=== PATIENT | female | born 1945 | race Caucasian/White ===

== ENCOUNTER 2017-08-10 10:22 | Day surgery (SDC) | payer MEDICARE ==
[~2017-08-10] VITALS: Ht 167.6 cm; Wt 62.6 kg
[~2017-08-10 10:22] MED LIST: ASPI-621 PO; BIOTIN PO; BUPIVACAINE/PF 0.25% ONE; CHOL400C11 PO; CYAN50008 PO; EPINEPHRINE 1 MG/ML, 1ML ONE; FENTANYL PF 100 MCG/2ML ONE; FISH OIL PO; LIDOCAINE 1%, 2ML ONE; MAGNESIUM PO; MIDAZOLAM 1 MG/ML, 2ML ONE; MULT-717 PO; OMEP-110 PO; PREG50CA PO; RED600CA2 PO; UBID100C19 PO; VIT1CAPS11 PO; VITAMIN C PO
[2017-08-10] MEDS ORDERED: LACTATED RINGERS 1,000 ML IV SCH (11:41)
[2017-08-10] MEDS ORDERED: LIDOCAINE 1%, 2ML SQ PRN (12:00)
[2017-08-10] MEDS ORDERED: MIDAZOLAM 1 MG/ML, 2ML ONE (12:24)
[2017-08-10] MEDS ORDERED: FENTANYL PF 100 MCG/2ML ONE ×2 (12:24→14:40)
[2017-08-10] MEDS ORDERED: PROPOFOL 10 MG/ML, 20ML ONE (12:25)
[2017-08-10] MEDS ORDERED: LIDOCAINE-MPF 2% ,5ML ONE (12:25)
[2017-08-10] MEDS ORDERED: ROCURONIUM 10 MG/ML ONE (13:22)
[2017-08-10] MEDS ORDERED: KETAMINE 10 MG/ML, 20ML ONE (13:22)
[2017-08-10] MEDS ORDERED: CEFAZOLIN 1,000 MG ONE ×2 (13:36)
[2017-08-10] MEDS ORDERED: DEXAMETHASONE 4 MG/ML, 1ML ONE ×2 (13:36)
[2017-08-10] MEDS ORDERED: KETOROLAC 30 MG/1 ML ONE (13:46)
[2017-08-10] MEDS ORDERED: ONDANSETRON 2MG/ML, 2ML ONE ×2 (13:46)
[2017-08-10] MEDS ORDERED: HYDROmorphone 1 MG/ML, 1ML ONE (13:59)
[2017-08-10] MEDS ORDERED: hydrALAzine 20 MG/ML, 1ML IV PRN (14:30)
[2017-08-10] MEDS ORDERED: PROMETHAZINE 25 MG/ML, 1ML IV PRN (14:30)
[2017-08-10] MEDS ORDERED: FENTANYL PF 100 MCG/2ML IV PRN (14:30)
[2017-08-10] MEDS ORDERED: ACETAMINOPHEN 325 MG TABLET PO PRN (14:30)
[2017-08-10] MEDS ORDERED: OXYcodone 5 MG/5 ML ORAL.SOL UDC PO PRN (14:30)
[2017-08-10] MEDS ORDERED: ONDANSETRON 2MG/ML, 2ML IVPush PRN (14:30)
[2017-08-10] MEDS ORDERED: LABETALOL 5MG/ML, 20ML IV PRN (14:30)
[2017-08-10] MEDS ORDERED: MEPERIDINE/PF 25MG/0.5ML IVPush PRN (14:30)
[2017-08-10] MEDS ORDERED: ALBUTEROL SULFATE 2.5 MG/3 ML NPPB PRN (14:30)
[2017-08-10] MEDS ORDERED: HYDROmorphone 1 MG/ML, 1ML IV PRN (14:30)
[2017-08-10] MEDS ORDERED: ACETAMINOPHEN 650 MG/20.3 ML UDC ONE (14:40)
[2017-08-10] MEDS ORDERED: OXYcodone 5 MG/5 ML ORAL.SOL UDC ONE (14:40)
== END 2017-08-10 16:50 | disposition home or self-care (01) ==
LOC: OUT 10:22
PROVIDERS: ATTEND Obstetrics & Gynecology Female Pelvic Medicine and Reconstructive Surgery
DX: N81.3 Complete uterovaginal prolapse (principal); K21.9 Gastro-esophageal reflux disease without esophagitis; Z90.710 Acquired absence of both cervix and uterus; Z90.49 Acquired absence of other specified parts of digestive tract; Z98.890 Other specified postprocedural states
CPT/HCPCS: 57260; 57282; J0171; J0690; J1100; J1170; J1885; J2250; J2405; J2704; J3490; J7120; J3010

== ENCOUNTER 2017-09-30 08:35 | Observation (INO) | payer MEDICARE ==
[~2017-09-30] VITALS: Ht 170.2 cm; Wt 62.3 kg
[~2017-09-30 08:35] MED LIST changes: -BUPIVACAINE/PF 0.25% ONE; -EPINEPHRINE 1 MG/ML, 1ML ONE; -FENTANYL PF 100 MCG/2ML ONE; -LIDOCAINE 1%, 2ML ONE; -MIDAZOLAM 1 MG/ML, 2ML ONE
[2017-09-30] MEDS ORDERED: SODIUM CHLORIDE 0.9% 1,000 ML IV SCH (09:14)
[2017-09-30 09:43] VITALS: BP 133/69
[2017-09-30 09:55] LABS: BASOPHILS # (AUTO) 0.04 x10^3/uL (0-0.1); BASOPHILS % (AUTO) 1 % (0-1); EOSINOPHILS # (AUTO) 0.04 x10^3/uL (0-0.4); EOSINOPHILS % (AUTO) 1 % (1-7); LYMPHOCYTES # (AUTO) 2.08 x10^3/uL (1-3.4); LYMPHOCYTES % (AUTO) 33 % (22-44); MD NO; MEAN CORPUSCULAR HEMOGLOBIN 35.4 pg (27.0-34.8); MEAN CORPUSCULAR HGB CONC 33.9 g/dL (32.4-35.8); MEAN CORPUSCULAR VOLUME 104.3 fL (80-100); MEAN PLATELET VOLUME 7.1 fL (7.4-10.4); MONOCYTES # (AUTO) 0.32 x10^3/uL (0.2-0.8); MONOCYTES % (AUTO) 5 % (2-9); NEUTROPHILS # (AUTO) 3.86 x10^3/uL (1.8-6.8); NEUTROPHILS % (AUTO) 61 % (42-75); PLATELET COUNT 301 x10^3/uL (130-400); RED BLOOD COUNT 4.64 x10^6/uL (3.82-5.3); RED CELL DISTRIBUTION WIDTH 14.1 % (9.6-15.2)
[2017-09-30 09:59] LABS: INTERNATIONAL NORMALIZED RATIO 1.03 (0.93-1.1); PROTHROMBIN TIME 10.7 Seconds (9.6-11.5)
[2017-09-30] MEDS ORDERED: FLUMAZENIL 0.1 MG/1 ML, 5ML ONE (09:59)
[2017-09-30] MEDS ORDERED: HEPARIN 1,000 UNITS/ML, 10ML ONE (09:59)
[2017-09-30] MEDS ORDERED: LIDOCAINE 2%, 20ML ONE ×2 (09:59→10:32)
[2017-09-30] MEDS ORDERED: FENTANYL PF 100 MCG/2ML ONE (09:59)
[2017-09-30] MEDS ORDERED: NALOXONE 1 MG/ML, 2ML ONE (09:59)
[2017-09-30] MEDS ORDERED: NITROGLYCERIN 5 MG/ML, 10ML ONE (09:59)
[2017-09-30] MEDS ORDERED: MIDAZOLAM 1 MG/ML, 5ML ONE (09:59)
[2017-09-30] MEDS ORDERED: PROTAMINE SULFATE 10 MG/ML, 25ML ONE (09:59)
[2017-09-30] MEDS ORDERED: VISIPAQUE 270 MG/ML, 150ML BOTTLE ONE ×2 (10:00→13:52)
[2017-09-30 10:06] LABS: ALANINE AMINOTRANSFERASE 21 U/L (12-78); ANION GAP 8 mmol/L (5-15); CALCIUM 9.4 mg/dL (8.5-10.1); CHLORIDE 108 mmol/L (98-107); CREATININE 0.73 mg/dL (0.55-1.02)
[2017-09-30 10:08] LABS: ALKALINE PHOSPHATASE 83 U/L (45-117); BILIRUBIN,TOTAL 0.5 mg/dL (0.2-1.0); TOTAL PROTEIN 8.5 g/dL (6.4-8.2)
[2017-09-30] MEDS ORDERED: CLOPIDOGREL 300 MG TABLET ONE (12:14)
[2017-09-30] MEDS ORDERED: hydrALAzine 20 MG/ML, 1ML ONE (16:53)
[2017-09-30] MEDS ORDERED: hydrALAzine 20 MG/ML, 1ML IV PRN (17:00)
[2017-09-30] MEDS: SODIUM CHLORIDE 0.9% 1,000 ML IV SCH (19:30)
[2017-09-30] MEDS ORDERED: ACETAMINOPHEN 325 MG TABLET PO PRN (19:30)
[2017-09-30] MEDS ORDERED: ONDANSETRON 2MG/ML, 2ML IVPush PRN (19:30)
[2017-09-30 19:47] VITALS: BP 153/69
[2017-09-30] MEDS ORDERED: morphine SULFATE 10 MG/ML, 1ML IVPush PRN (20:00)
[2017-09-30 20:34] VITALS: BP 120/67
[2017-09-30] MEDS ORDERED: ZOLPIDEM 5MG TABLET PO PRN (21:00)
[2017-10-01 00:38] VITALS: BP 116/66
[2017-10-01 04:15] VITALS: BP 150/68
[2017-10-01 04:43] LABS: BASOPHILS # (AUTO) 0.02 x10^3/uL (0-0.1); BASOPHILS % (AUTO) 0 % (0-1); EOSINOPHILS # (AUTO) 0.05 x10^3/uL (0-0.4); EOSINOPHILS % (AUTO) 1 % (1-7); LYMPHOCYTES # (AUTO) 1.49 x10^3/uL (1-3.4); LYMPHOCYTES % (AUTO) 26 % (22-44); MD NO; MEAN CORPUSCULAR HEMOGLOBIN 35.1 pg (27.0-34.8); MEAN CORPUSCULAR HGB CONC 33.7 g/dL (32.4-35.8); MEAN CORPUSCULAR VOLUME 103.9 fL (80-100); MEAN PLATELET VOLUME 7.1 fL (7.4-10.4); MONOCYTES % (AUTO) 7 % (2-9); NEUTROPHILS # (AUTO) 3.77 x10^3/uL (1.8-6.8); NEUTROPHILS % (AUTO) 66 % (42-75); PLATELET COUNT 274 x10^3/uL (130-400); RED BLOOD COUNT 4.11 x10^6/uL (3.82-5.3); RED CELL DISTRIBUTION WIDTH 14.1 % (9.6-15.2)
[2017-10-01 04:50] LABS: ALBUMIN 3.2 g/dL (3.4-5.0); ANION GAP 9 mmol/L (5-15); CALCIUM 8.4 mg/dL (8.5-10.1); CHLORIDE 111 mmol/L (98-107)
[2017-10-01 04:51] LABS: CREATININE 0.58 mg/dL (0.55-1.02)
[2017-10-01] MEDS: SODIUM CHLORIDE 0.9% 1,000 ML IV SCH (05:30)
[2017-10-01] MEDS ORDERED: ASPIRIN 81 MG TABLET EC PO SCH (06:00)
[2017-10-01 06:58] VITALS: BP 170/77
[2017-10-01] MEDS ORDERED: ATORVASTATIN 40 MG TABLET PO SCH (09:00)
[2017-10-01] MEDS ORDERED: CLOPIDOGREL 75 MG TABLET PO SCH (09:00)
== END 2017-10-01 09:00 | disposition home or self-care (01) ==
LOC: OUT 08:35 → INTOOBSV 18:16 → ORIP 18:16 → 4NOR 19:07
PROVIDERS: ADMIT Internal Medicine Interventional Cardiology; ATTEND Internal Medicine Interventional Cardiology
DX: I74.3 Embolism and thrombosis of arteries of the lower extremities (principal); I73.9 Peripheral vascular disease, unspecified; I25.10 Atherosclerotic heart disease of native coronary artery without angina pectoris; Z72.0 Tobacco use; Z72.89 Other problems related to lifestyle
CPT/HCPCS: 36415; 37221; 37225; 75630; 80048; 80053; 82040; 85025; 85347; 85610; 96374; 99156; 99157; C1725; C1751; C1760; C1769; C1876; C1894; C2623; G0378; J0360; J1644; J2250; J2720; J3010; J3490; J7030; Q9966; J2310

== ENCOUNTER → 2018-05-06 | Outpatient (CLI) | payer MEDICARE ==
[~2018-05-06] MED LIST changes: +ACET-1600 PO; +ALPR-475 PO; +ATOR40TA78 PO; +CALC-116 PO; +CLOP75TA PO; +CYAN100072 PO; +LACT1CAP40 PO; +LOPE2CAP94 PO; +MAGN250T9 PO; +VITA10002 PO
[2018-05-06 11:29] LABS: CULTURE INDICATED? YES; MICROSCOPIC INDICATED
== END | disposition home or self-care (01) ==
LOC: STAR 10:07
PROVIDERS: ATTEND Obstetrics & Gynecology Female Pelvic Medicine and Reconstructive Surgery
DX: Z01.818 Encounter for other preprocedural examination (principal); N39.3 Stress incontinence (female) (male); N81.10 Cystocele, unspecified
CPT/HCPCS: 71046; 81001; 87077; 87086; 87186; 93005

== ENCOUNTER 2018-05-10 10:13 | Day surgery (SDC) | payer MEDICARE ==
[~2018-05-10] VITALS: Ht 167.6 cm; Wt 61.6 kg
[~2018-05-10 10:13] MED LIST changes: -ACET-1600 PO; +BACITRACIN 50,000 UNIT ONE; +BUPIVACAINE 0.25% ONE; +EPINEPHRINE 1 MG/ML, 1ML ONE
[2018-05-10 10:51] VITALS: BP 167/78
[2018-05-10] MEDS ORDERED: LACTATED RINGERS 1,000 ML IV SCH (10:53)
[2018-05-10] MEDS ORDERED: ACET-1600 PO (10:57)
[2018-05-10] MEDS ORDERED: GABAPENTIN 300 MG CAPSULE PO ONE (11:00)
[2018-05-10] MEDS ORDERED: ACETAMINOPHEN 500 MG TABLET PO ONE (11:00)
[2018-05-10] MEDS ORDERED: SCOPOLAMINE PATCH, 1.5MG PATCH.TD72 TD ONE (11:00)
[2018-05-10] MEDS ORDERED: LIDOCAINE-MPF 1%, 2ML INFIL ONE (11:00)
[2018-05-10] MEDS ORDERED: FENTANYL PF 100 MCG/2ML ONE ×2 (12:23→15:04)
[2018-05-10] MEDS ORDERED: LABETALOL 5MG/ML, 20ML IV PRN (12:30)
[2018-05-10] MEDS ORDERED: ONDANSETRON 2MG/ML, 2ML IV PRN (12:30)
[2018-05-10] MEDS ORDERED: HYDROmorphone 1 MG/ML, 1ML IV PRN (12:30)
[2018-05-10] MEDS ORDERED: PROMETHAZINE 12.5 MG SUPP PR PRN (12:30)
[2018-05-10] MEDS ORDERED: hydrALAzine 20 MG/ML, 1ML IV PRN (12:30)
[2018-05-10] MEDS ORDERED: FENTANYL PF 100 MCG/2ML IV PRN (12:30)
[2018-05-10] MEDS ORDERED: PROPOFOL 10 MG/ML, 20ML ONE (12:34)
[2018-05-10] MEDS ORDERED: CEFAZOLIN 1,000 MG ONE (12:34)
[2018-05-10] MEDS ORDERED: ONDANSETRON 2MG/ML, 2ML ONE (12:34)
[2018-05-10] MEDS ORDERED: DEXAMETHASONE 4 MG/ML, 1ML ONE ×2 (12:34→13:18)
[2018-05-10] MEDS ORDERED: NEOSTIGMINE 1 MG/ML, 10ML ONE (13:18)
[2018-05-10] MEDS ORDERED: GLYCOPYRROLATE 0.2MG/1ML, 5ML ONE (13:18)
[2018-05-10] MEDS ORDERED: KETOROLAC 30 MG/1 ML ONE (13:18)
[2018-05-10] MEDS ORDERED: SUCCINYLCHOLINE 20 MG/ML, 10ML ONE (13:18)
[2018-05-10] MEDS ORDERED: ROCURONIUM 10 MG/ML,10ML ONE (13:18)
[2018-05-10] MEDS ORDERED: OXYcodone 5 MG/5 ML ORAL.SOL UDC PO PRN (13:30)
[2018-05-10] MEDS ORDERED: NEOMY/POLYMYXIN B GU IRR. 1 ML IRRIG ONE ×2 (13:44→13:57)
[2018-05-10] MEDS ORDERED: FUROSEMIDE 20 MG/2 ML ONE (13:55)
[2018-05-10] MEDS ORDERED: FLUORESCEIN SODIUM 500 MG/5 ML ONE (14:15)
[2018-05-10] MEDS ORDERED: OXYcodone 5 MG/5 ML ORAL.SOL UDC ONE (15:04)
== END 2018-05-10 17:45 | disposition home or self-care (01) ==
LOC: OUT 10:13
PROVIDERS: ATTEND Obstetrics & Gynecology Female Pelvic Medicine and Reconstructive Surgery
DX: N81.89 Other female genital prolapse (principal); N39.46 Mixed incontinence; N81.11 Cystocele, midline; F32.9 Major depressive disorder, single episode, unspecified; F41.9 Anxiety disorder, unspecified; Z90.49 Acquired absence of other specified parts of digestive tract; Z98.890 Other specified postprocedural states; Z90.710 Acquired absence of both cervix and uterus; Z79.899 Other long term (current) drug therapy; Z72.89 Other problems related to lifestyle; J44.9 Chronic obstructive pulmonary disease, unspecified; E78.5 Hyperlipidemia, unspecified; K21.9 Gastro-esophageal reflux disease without esophagitis; Z86.718 Personal history of other venous thrombosis and embolism; I73.9 Peripheral vascular disease, unspecified; Z79.82 Long term (current) use of aspirin; Z72.0 Tobacco use
CPT/HCPCS: 57265; 57267; 57282; 57288; C1771; C1781; J0330; J0690; J1100; J1885; J1940; J2405; J2704; J2710; J3010; J3490; J7120; J0171